=== PATIENT | female | born 1940 | race Asian ===

== ENCOUNTER 2020-01-21 13:53 | Outpatient (RCR) | payer MEDICARE, MEDICAID | END 2020-02-17 | disposition home or self-care (01) | LOC: WCC 13:53 | DX: L98.493 Non-pressure chronic ulcer of skin of other sites with necrosis of muscle (principal); E78.00 Pure hypercholesterolemia, unspecified; E11.9 Type 2 diabetes mellitus without complications; Z95.0 Presence of cardiac pacemaker; Z86.11 Personal history of tuberculosis | CPT/HCPCS: C5271; G0463; Q4102 ==

== ENCOUNTER 2020-02-18 13:58 | Outpatient (RCR) | payer MEDICARE, MEDICAID | END 2020-03-18 | disposition home or self-care (01) | LOC: WCC 13:58 | DX: L98.493 Non-pressure chronic ulcer of skin of other sites with necrosis of muscle (principal) | CPT/HCPCS: 11043; G0463 ==